=== PATIENT | female | born 1975 | race Caucasian/White ===

== ENCOUNTER 2020-06-16 09:52 | Emergency (ER) | payer SELFPAY ==
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
[2020-06-16] MEDS ORDERED: CYCLOBENZAPRINE 10 MG TAB ONE (11:04)
[2020-06-16] MEDS ORDERED: HYDROCODONE/APAP 10/325 TAB ONE (11:05)
--- NOTE | 2020-06-16 11:46 | EDPHYS ---
Physician Documentation [facility] Name: Gomez Mathew Age: 44 yrs Sex: Female : 1975 Arrival Date: 06/16/2020 Time: 09:54 Bed 28 Private MD: Figueroa Ramirez HPI: 06/16 10:36 This 44 yrs old Female presents to ER via Ambulatory with complaints of Back pm1 Pain. 10:36 The patient presents with pain that is chronic, with no known mechanism of injury. The pm1 symptoms are located in the low back. Onset: The symptoms/episode began/occurred 3 year(s) ago. The pain does not radiate. Associated signs and symptoms: The patient has no apparent associated signs or symptoms, Pertinent negatives: dysuria, fever, incontinence, numbness, tingling, weakness. The problem was sustained from unknown cause. Modifying factors: The patient symptoms are alleviated by nothing, the patient symptoms are aggravated by movement. Severity of symptoms: in the emergency department the symptoms have improved, a " 5" out of "10". The patient has experienced similar episodes in the past, chronically. Patient presents to the ER with complaints of lower back pain that started at least 3 years ago. She will not specify when it started. 3 years ago had a x-ray or u/s that reported a mass at T12 area. Presented to a [place] ER at that time for the same lower back cramping pain. 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 - Social history:: Smoking status: . ROS: 10:36 Constitutional: Negative for fever, chills, and weight loss, Cardiovascular: Negative pm1 for chest pain, palpitations, and edema, Respiratory: Negative for shortness of breath, cough, wheezing, and pleuritic chest pain, Abdomen/GI: Negative for abdominal pain, nausea, vomiting, diarrhea, and constipation. 10:36 : Negative for injury, bleeding, discharge, and swelling, MS/Extremity: Negative for injury and deformity, Skin: Negative for injury, rash, and discoloration, Neuro: Negative for headache, weakness, numbness, tingling, and seizure. 10:36 Back: Positive for of the low back area, cramping. Exam: 10:36 Constitutional: This is a well developed, well nourished patient who is awake, alert, pm1 and in no acute distress. Head/Face: Normocephalic, atraumatic. 10:36 Cardiovascular: Exam negative for acute changes, Rate: normal, Rhythm: regular, Pulses: no pulse deficits are appreciated. 10:36 Respiratory: Exam negative for acute changes, respiratory distress, shortness of breath. 10:36 Back: vertebral tenderness, is not appreciated, muscle spasm, is appreciated in the low back area. 10:36 Skin: Appearance: normal except for affected area, diffuse neurofibromas present. 10:36 Neuro: Exam negative for acute changes, Orientation: is normal, Mentation: is normal, Motor: is normal, moves all fours, Sensation: is normal, no obvious gross deficits, Gait: is steady, at a normal pace, without difficulty. Vital Signs: 10:17 BP 149 / 89; Pulse 87; Resp 16; Temp 98.3; Pulse Ox 100% on R/A; Weight 47.63 kg; iw Height 4 ft. 11 in. (149.86 cm); Pain 6/10; 10:17 Body Mass Index 21.21 (47.63 kg, 149.86 cm) iw MDM: 10:25 Patient medically screened. pm1 10:36 ED course: Patient reports history of mass on back diagnosed 3 years ago in T12 area by pm1 x-ray or U/S. Patient has been having this same back pain for greater than 3 years. Patient currently reports pain to tailbone area with muscle spasms in lower back. I offered imaging, lumbar x-ray, but patient refused. Patient without numbness tingling or radiation of pain to lower extremities. No incontinence of urine or stool. 11:13 Data reviewed: vital signs. Data interpreted: Pulse oximetry: on room air is 100 %. pm1 Interpretation: normal. 11:13 ED course: PMP[place] reviewed. 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 Administered Medications: 10:54 Drug: Flexeril 10 mg Route: PO; iw 10:54 Drug: [place] 10 mg-325 mg 1 tabs Route: PO; iw Disposition: 06/17 08:56 Co-signature as Attending Physician, Figueroa Schulz MD I agree with the assessment and sharon plan of care. Disposition: 06/16/20 11:46 Discharged to Home. Impression: Low back pain. - Condition is Stable. - Discharge Instructions: Back Pain, Adult, Chronic Back Pain. - Prescriptions for Tylenol- Codeine #3 300-30 mg Oral Tablet - take 2 tablets by ORAL route every 6 hours As needed; 20 tablet. Cyclobenzaprine 10 mg Oral Tablet - take 1 tablet by ORAL route every 8 hours As needed; 30 tablet. - Medication Reconciliation Form, Thank You Letter, Antibiotic Education, Prescription Opioid Use form. - Follow up: Emergency Department; When: As needed; Reason: Worsening of condition. Follow up: Private Physician; When: 2 - 3 days; Reason: Recheck today's complaints, Continuance of care, Re-evaluation by your physician. - Problem is new. - Symptoms have improved. Signatures: Figueroa Schulz MD MD cha Williams, Irene, ROSELINE RN iw Mike Bustillos NP SOUND ENGINEERING TECHNICIAN pm1 Corrections: (The following items were deleted from the chart) 06/16 12:00 11:46 06/16/2020 11:46 Discharged to Home. Impression: Low back pain. Condition is iw Stable. Discharge Instructions: Back Pain, Adult, Chronic Back Pain. Prescriptions for Tylenol-Codeine #3 300-30 mg Oral Tablet - take 2 tablets by ORAL route every 6 hours As needed; 20 tablet, Cyclobenzaprine 10 mg Oral Tablet - take 1 tablet by ORAL route every 8 hours As needed; 30 tablet. and Forms are Medication Reconciliation Form, Thank You Letter, Antibiotic Education, Prescription Opioid Use. Follow up: Emergency Department; When: As needed; Reason: Worsening of condition. Follow up: Private Physician; When: 2 - 3 days; Reason: Recheck today's complaints, Continuance of care, Re-evaluation by your physician. Problem is new. Symptoms have improved. pm1
--- NOTE | 2020-06-16 11:46 | ER ---
Nurse's Notes [facility] Name: Gomez Mathew Age: 44 yrs Sex: Female : 1975 Arrival Date: 06/16/2020 Time: 09:54 Bed 28 Private MD: Diagnosis: Low back pain Presentation: 06/16 10:17 Chief complaint: Patient states: has had back spasms X 2 days, worse last night, has iw had spasms before and can usually control the pain at home but it was worse today, was told she has a mass on her vertebra that will eventually need to be removed but now does not have insurance. Coronavirus screen: At this time, the client does not indicate any symptoms associated with coronavirus-19. Ebola Screen: Patient negative for fever greater than or equal to 101.5 degrees Fahrenheit, and additional compatible Ebola Virus Disease symptoms Patient denies exposure to infectious person. Patient denies travel to an Ebola-affected area in the 21 days before illness onset. No symptoms or risks identified at this time. Initial Sepsis Screen: Does the patient meet any 2 criteria? No. Patient's initial sepsis screen is negative. Does the patient have a suspected source of infection? No. Patient's initial sepsis screen is negative. Risk Assessment: Do you want to hurt yourself or someone else? Patient reports no desire to harm self or others. Onset of symptoms was June 14, 2020. 10:17 Method Of Arrival: Ambulatory iw 10:17 Acuity: ELIECER 4 iw Triage Assessment: 11:59 General: Appears in no apparent distress. Behavior is calm, cooperative. iw Musculoskeletal: Range of motion: intact in all extremities. 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 - Social history:: Smoking status: . Screenin:30 Abuse screen: Denies threats or abuse. Denies injuries from another. Nutritional iw screening: No deficits noted. Tuberculosis screening: No symptoms or risk factors identified. Fall Risk None identified. Assessment: 10:18 Reassessment: Patient appears in no apparent distress at this time. General: Appears in iw no apparent distress. Pain: Complains of pain in lumbar area, left low back and right low back. Neuro: Level of Consciousness is awake, alert, obeys commands, Oriented to person, place, time, situation, Moves all extremities. Full function. Cardiovascular: Patient's skin is warm and dry. Respiratory: Respiratory effort is even, unlabored, Respiratory pattern is regular, symmetrical. Derm: Skin is intact, is healthy with good turgor. Musculoskeletal: Range of motion: intact in all extremities. 10:57 Reassessment: Patient appears in no apparent distress at this time. Patient and/or iw family updated on plan of care and expected duration. Pain level reassessed. Patient is alert, oriented x 3, equal unlabored respirations, skin warm/dry/pink. Vital Signs: 10:17 BP 149 / 89; Pulse 87; Resp 16; Temp 98.3; Pulse Ox 100% on R/A; Weight 47.63 kg; iw Height 4 ft. 11 in. (149.86 cm); Pain 6/10; 10:17 Body Mass Index 21.21 (47.63 kg, 149.86 cm) iw ED Course: 09:54 Patient arrived in ED. mr 09:58 Mike Bustillos, STEPHANE is PHCP. pm1 09:58 Figueroa Schulz MD is Attending Physician. pm1 10:18 Patient has correct armband on for positive identification. iw 10:19 Triage completed. iw 10:21 Veronique West, RN is Primary Nurse. iw 10:21 Arm band placed on. iw 10:57 No provider procedures requiring assistance completed. Patient did not have IV access iw during this emergency room visit. Administered Medications: 10:54 Drug: Flexeril 10 mg Route: PO; iw 10:54 Drug: [place] 10 mg-325 mg 1 tabs Route: PO; iw Outcome: 11:46 Discharge ordered by . pm1 11:59 Discharged to home ambulatory. iw 11:59 Condition: good 11:59 Discharge instructions given to patient, Instructed on discharge instructions, follow up and referral plans. medication usage, Demonstrated understanding of instructions, follow-up care, medications, Prescriptions given X 2. 12:00 Patient left the ED. iw Signatures: Renée Murphy Irene, RN RN iw Mike Bustillos, STEPHANE SENIOR OPERATOR pm1
[2020-06-16 12:06] VITALS: BP 149/89; TEMP 98.3; O2SAT 100
== END 2020-06-16 12:00 | disposition home or self-care (01) ==
LOC: ER 09:52
DX: M54.5 Low back pain (principal); I10 Essential (primary) hypertension
CPT/HCPCS: 99283

== ENCOUNTER 2021-10-22 11:04 | Emergency (ER) | payer OTHER ==
--- OUTSIDE RECORDS SUMMARY | 2021-10-22 11:09 | XMS REPORT | Continuity of Care Document ---
:1975 Author Organization [facility] t Address [address] [place] [address] Care Team Providers Name Role Phone FOX JACKMAN Attending Clinician Unavailable JOVANI GREENE Attending Clinician Unavailable KHOA Attending Clinician Unavailable MARLEE Attending Clinician Unavailable NATHAN DAVE Attending Clinician Unavailable Payers Payer Name Policy Type Policy Number Effective Date Expiration Date S ource Problems Condition Condition Condition Status Onset Resolution Last Treating Co mments Source Name Details Category Date Date Treatment Clinician Date Labile Labile Problem Active [facility] hypertensi hypertensi it y of on on [place] Physici ans Neurofibro Neurofibro Problem Active U nivers matosis, matosis, ity of type I type I [place] (von (von Physici Recklingha Recklingha an s usen's usen's disease) disease) Allergies, Adverse Reactions, Alerts Allergy Allergy Status Severity Reaction(s) Onset Inactive Treating Comm ents Source Name Type Date Date Clinician No Known DA Active U 2017-08 [facility] 08-11 [place] Family History Family Member Diagnosis Comments Start Date Stop Date Source Mother Family history of Univers ity of [place] malignant neoplasm of Phy sicians brain Father Family history of [facility] ity of [place] hypertension Physicians Father Family history of type Un iversity of [place] 2 diabetes mellitus Physi cians Social History Smoking Status Start Date Stop Date Source Current every day smoker [facility] [place] [facility] Medications Ordered Filled Start Stop Current Ordering Indication Dosage Frequency Signature Comments Components Source Medication Medication Date Date Medication? Clinician (SIG) Name Name NIFEdipine NIFEdipine 2016- Yes POURAN 1 QD TAKE 1 Univers ER Osmotic ER Osmotic 10-08 KHOA TABLET ity of Release 30 Release 30 00:00: M.D. DAILY. [place] MG Oral MG Oral 00 Physici Tablet Tablet ans Extended Extended Release 24 Release 24 Hour Hour Procedures Procedure Date / Time Performing Clinician Source Performed History of [facility] History of Appendectomy [facility] Physicians Encounters Start End Encounter Admission Attending Care Care Encounter Source Date/Time Date/Time Type Type Clinicians Facility Department ID 2018-12-07 2018-12-[address] [facility] [id number] [id number] [facility] [address] 11:06:53 12:21:[id number] [facility] 2016-10-22 2016-10-22 Appointmen VERA COUCH [facility] [id number] Univers 14:00:00 14:00:00 t; Alexandre CRAIN M.D. [place] POURAN, Physici M.D. ans 2016-10-08 2016-10-08 Appointmen VERA COUCH [facility]TP [id number] Univers 08:30:00 08:30:00 t; Alexandre CRAIN M.D. [place] POURAN, Physici M.D. ans Results Test Description Test Time Test Comments Results Result [facility] e Comments MR, BRAIN, WITH 2019-07-03 FINAL REPORT PATIENT 14:40:00 ID: [id number] MRI Brain with and without contrast Clinical [...] clinical correlation is requested. Signed: Daniela Obrien MDReport Verified Date/Time: 07/03/2019 14:40:52 Reading Location: [facility] C013V Neuro Reading Room - CT HEAD/BRAIN 2019-04-22 Name: JALYN STUBBS W/O CONT 22:15:00 [facility] : 1975 Age/S: 43 / F [id number] Unit #: [id number] Loc: [place] [address] Phys: Shreyas Miranda MD Acct: [id number] Dis Date: Status: REG ER PHONE #: [phone] Exam Date: 04/22/2019 2200 FAX #: Reason: persistent headaches EXAMS: CPT: [id number] CT HEAD/BRAIN W/O CONT [id number] CT head History: persistent headaches Comparison: None [...] and signed by: Michael Lizama M.D. CC: Technologist:Franny Palumbo, RT(R)(CT) CTDI: DLP: Trnscb Date/Time: 04/22/2019 (2214) Cory Orig Print D/T: S: 04/22/2019 (4940) PAGE 1 Signed Report MM, DIGITAL, 2018-12-21 Diagnostic MRN#: [id number], SCREENING, 11:38:00 workup per [id number] - BILATERAL radiologist?->Ye MM, DIGITAL, MAMMO, INCLUDING CAD sReason for SCREENING, BILATERAL Exam:->screening INCLUDING for mammogram CADBILATERAL DIGITAL SCREENING MAMMOGRAM 3D/2D [...] pg/mL 0-100 (test code = 700) TROPONIN [id number] 16:50:00 Test Item Value Reference Range Interpretation [...] acute neurological disease, and persistent tachyarrhythmia.BASIC METABOLIC [id number] 16:43:00 Test Item Value Reference Range Interpretation [...] S NOT APPLICABLE FOR DIALYSIS PATIEN TS. [id number] 16:40:00 Test Item Value Reference Range Interpretation Comments D-DIMER QUANTITATIVE (BEAKER) (test 0.16 mg/L <0.50 code = 671) REGARDING D-DIMER RESULTS: The 98% NPV (Negative Predictive Value) for DVT/PE exclusion is 0.50 mg/LFEU as suggested by the security patrol officer and as approved by the FDA.Final Information (Auto Output)[id number] 16:39:00 Test Item Value Reference Range Interpretation [...] (Auto Output)Final Information (Auto Output)Final Information (Auto Output)[id number] 16:37:00 Test Item Value Reference Range Interpretation Comments MAGNESIUM (BEAKER) (test code = 1.8 mg/dL 1.5-3.0 627) CBC W/PLT COUNT & AUTO [id number] 16:20:00 Test Item Value Reference Range Interpretation [...] (test code = 2801) RAD, CHEST, 2 [id number] 16:00:00Reason for exam:->CHEST PAINFINAL REPORT Chest, two views History: chest pain Comparison: none Findings:Clear lungs. Normal size heart. No pleural effusion or pneumothorax. Impression:No acute findings in the chest Signed: Lanre Martinez Verified Date/Time: 11/19/2018 16:00:58 Reading Location: [facility] C013Y CT Body Reading Room 04:00 PMPREGNANCY SCREEN, [id number] 22:41:00 Test Item Value Reference Range Interpretation Comments TEST URINE (CASSANDRA) (test Negative code = 583) RAD, HAND, 3 VIEWS, [id number] 21:31:00Reason for exam:->FALLReason for exam:->BACK PAINReason for [...] MDReport Verified Date/Time: 07/20/2017 21:31:41 Reading Location: [facility] C013Y CT Body Reading Room Electronically s igned by: NADJA LIMA on 07/20/2017 09:31 PMRAD, [id number] 21:25:00Reason for exam:->FALLReason for exam:->BACK PAINReason for [...] MDReport Verified Date/Time: 07/20/2017 21:25:18 Reading Location: [address] Body Reading Room , SPINE, LUMBAR, 2 OR 3 [id number] 21:25:00Reason for exam:- >FALLReason for exam:->BACK PAINReason [...] MDReport Verified Date/Time: 07/20/2017 21:25:18 Reading Location: [facility] Body Reading Room URINALYSIS W/ REFLEX URINE [id number] 00:46:00 Test Item Value Reference Range Interpretation [...] 1663) SOURCE(BEAKER) (test code = 2795) SCREEN, [id number] 00:41:00 Test Item Value Reference Range Interpretation Comments TEST URINE (BEAKER) (test Negative code = 583) URINALYSIS W/ [id number] 04:08:00 Test Item Value Reference Range Interpretation [...] 1663) SOURCE(BEAKER) (test code = 2795) SCREEN, [id number] 03:58:00 Test Item Value Reference Range Interpretation Comments TEST URINE (BEAKER) (test Negative code = 583) CBC W/PLT COUNT & AUTO [id number] 03:21:00 Test Item Value Reference Range Interpretation [...] code = 1+ few 965) BASIC METABOLIC [id number] 03:19:00 Test Item Value Reference Range Interpretation [...]
[2021-10-22] MEDS ORDERED: DIAZEPAM 5 MG TABLET ONE (11:24)
[2021-10-22] MEDS ORDERED: HYDROCODONE/APAP 5/325 MG TAB ONE (11:25)
--- NOTE | 2021-10-22 12:54 | EDPHYS ---
Physician Documentation [facility] Name: Gomez Mathew Age: 46 yrs Sex: Female : 1975 Arrival Date: 10/22/2021 Time: 11:08 Bed 14 Private MD: ED Physician Torito Deleon HPI: 10/22 11:20 This 46 yrs old Female presents to ER via Ambulatory with complaints of Back Pain. ms3 11:20 The patient presents with pain that is acute, with no known mechanism of injury. The ms3 patient presents with pain that is chronic. The symptoms are located in the low back. Onset: The symptoms/episode began/occurred last night. The pain does not radiate. Associated signs and symptoms: Pertinent negatives: abdominal pain, fever, nausea, numbness, tingling, urinary retention, vomiting, weakness. The problem was sustained from a chronic condition. Modifying factors: The patient symptoms are alleviated by nothing, the patient symptoms are aggravated by nothing. 46-year-old female with past medical history of neurofibromatosis and hypertension presents for back spasm that began last night. Patient states pain is 10/10 and feels like spasms. Patient states this occurs a few times per month. Patient denies alleviating or inciting factors. Patient denies numbness, weakness, bowel or bladder incontinence, or saddle anesthesia. 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 - Social history:: Smoking status: unknown. ROS: 11:20 Constitutional: Negative for fever, and chills. Eyes: Negative for injury, pain, ms3 redness, and discharge, ENT: Negative for injury, pain, and discharge, Neck: Negative for injury, pain, and swelling, Cardiovascular: Negative for chest pain, and palpitations. Respiratory: Negative for shortness of breath, cough, wheezing, and pleuritic chest pain, Abdomen/GI: Negative for abdominal pain, nausea, vomiting, diarrhea, and constipation, MS/Extremity: Negative for injury and deformity, Skin: Negative for injury, rash, and discoloration, Neuro: Negative for headache, weakness, numbness, tingling. Psych: Negative for depression, anxiety, suicide ideation, homicidal ideation, and hallucinations. 11:20 Back: Positive for pain at rest, pain with movement, of the lumbar area. 11:20 All other systems are negative. Exam: 11:20 Constitutional: This is a well developed, well nourished patient who is awake, alert, ms3 and in no acute distress. Head/Face: Normocephalic, atraumatic. Eyes: Pupils equal round and reactive to light, extra-ocular motions intact. Lids and lashes normal. Conjunctiva and sclera are non-icteric and not injected. Periorbital areas with no swelling, redness, or edema. ENT: Nares patent. No nasal discharge, no septal abnormalities noted. Tympanic membranes are normal and external auditory canals are clear. Oropharynx with no redness, swelling, or masses, exudates, or evidence of obstruction, uvula midline. Mucous membranes moist. Neck: Trachea midline, no cervical lymphadenopathy. Supple, full range of motion without nuchal rigidity, or vertebral point tenderness. No Meningismus. Chest/axilla: Normal chest wall appearance and motion. Nontender with no deformity. Cardiovascular: Regular rate and rhythm with a normal S1 and S2. No gallops, murmurs, or rubs. Normal PMI, no JVD. No pulse deficits. Respiratory: Lungs have equal breath sounds bilaterally, clear to auscultation and percussion. No rales, rhonchi or wheezes noted. No increased work of breathing, no retractions or nasal flaring. Abdomen/GI: Soft, non-tender, with normal bowel sounds. No distension or tympany. No guarding or rebound. No evidence of tenderness throughout. Neuro: Awake and alert, GCS 15, oriented to person, place, time, and situation. Cranial nerves II-XII grossly intact. Motor strength 5/5 in all extremities. Sensory grossly intact. Cerebellar exam normal. Normal gait. Psych: Awake, alert, with orientation to person, place and time. Behavior, mood, and affect are within normal limits. 11:20 Back: pain, that is moderate, of the lumbar area, ROM is normal, normal spinal alignment noted, CVA tenderness, is absent, vertebral tenderness, is not appreciated, muscle spasm, is appreciated in the lumbar area. Vital Signs: 11:16 BP 172 / 123; Pulse 97; Resp 18; Temp 98.2; Pulse Ox 97% ; Weight 47.63 kg; Height 4 ag7 ft. 11 in. (149.86 cm); Pain 10/10; 12:31 BP 133 / 82; Pulse 90; Resp 18; Pulse Ox 98% on R/A; Pain 0/10; lr4 13:21 BP 122 / 71; Pulse 84; Resp 18; Pulse Ox 99% on R/A; lr4 11:16 Body Mass Index 21.21 (47.63 kg, 149.86 cm) ag7 MDM: 11:20 Patient medically screened. ms3 12:53 Differential diagnosis: Back pain vs muscle spasm vs DDD. Data reviewed: vital signs, ms3 nurses notes. ED course: Discussed physical exam findings with patient and her . Patient to follow-up with her primary care physician as discussed. All questions were answered. Return precautions discussed include worsening symptoms, or any other concerns. On reevaluation patient symptoms have improved, patient is in no apparent distress, patient ambulatory in emergency department, no weakness, no numbness, no episodes of bowel or bladder incontinence.. Administered Medications: 11:29 Drug: HYDROcodone-acetaminophen 5 mg-325 mg 1 tabs Route: PO; ph 13:22 Follow up: Response: No adverse reaction; Pain is decreased lr4 11:29 Drug: Valium (diazepam) 10 mg Route: PO; ph 13:22 Follow up: Response: No adverse reaction; Pain is decreased lr4 Disposition Summary: 10/22/21 12:53 Discharge Ordered Location: Home ms3 Problem: new ms3 Condition: Stable ms3 Diagnosis - Low back pain ms3 - neurofibromatosis ms3 - Muscle spasm of back ms3 Followup: ms3 - With: Private Physician - When: 2 - 3 days - Reason: Discharge Instructions: - Discharge Summary Sheet ms3 - Acute Back Pain, Adult ms3 Forms: - Medication Reconciliation Form ms3 - Thank You Letter ms3 - Antibiotic Education ms3 - Prescription Opioid Use ms3 Prescriptions: - Ibuprofen 600 mg Oral Tablet - take 1 tablet by ORAL route every 6 hours As needed take with food; 30 tablet; ms3 Refills: 0, Product Selection Permitted - Cyclobenzaprine 10 mg Oral Tablet - take 1 tablet by ORAL route every 8 hours As needed; 30 tablet; Refills: 0, ms3 Product Selection Permitted Signatures: Andreia Ruvalcaba RN RN Torito eDleon DO DO ms3 Adenike Dwyer RN RN lr4 Christen Pedersen RN RN ag7
--- NOTE | 2021-10-22 12:54 | ER ---
Nurse's Notes [facility] Name: Gomez Mathew Age: 46 yrs Sex: Female : 1975 Arrival Date: 10/22/2021 Time: 11:08 Bed 14 Private MD: Diagnosis: Low back pain;neurofibromatosis;Muscle spasm of back Presentation: 10/22 11:16 Chief complaint: Patient states: " Patient c/o back pain, back spasm that shoots up the ag7 spine and feels like crushing the chest that started last night". Coronavirus screen: Client denies travel out of the [place] in the last 14 days. At this time, the client does not indicate any symptoms associated with coronavirus-19. Ebola Screen: No symptoms or risks identified at this time. Initial Sepsis Screen: Does the patient meet any 2 criteria? No. Patient's initial sepsis screen is negative. Does the patient have a suspected source of infection? No. Patient's initial sepsis screen is negative. Risk Assessment: Do you want to hurt yourself or someone else? Patient reports no desire to harm self or others. Onset of symptoms was October 21, 2021. 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 - Social history:: Smoking status: unknown. Screenin:56 Abuse screen: Denies threats or abuse. Denies injuries from another. Nutritional ph screening: No deficits noted. Tuberculosis screening: No symptoms or risk factors identified. Fall Risk None identified. Assessment: 11:49 General: Appears in no apparent distress. uncomfortable, slender, well groomed, ph Behavior is calm, cooperative, appropriate for age, Denies fever, feeling ill. Pain: Complains of pain in lumbar area Pain radiates to left subscapular area, right subscapular area, left mid back and right mid back Pain currently is 10 out of 10 on a pain scale. Neuro: Level of Consciousness is awake, alert, obeys commands, Oriented to person, place, time, situation. Cardiovascular: Capillary refill < 3 seconds in bilateral fingers Patient's skin is warm and dry. Respiratory: Airway is patent Respiratory effort is even, unlabored. Derm: Skin is intact, is healthy with good turgor, Skin is pink, warm \\T\\ dry. Musculoskeletal: Circulation, motion, and sensation intact. Range of motion: intact in all extremities. 12:33 Reassessment: Patient is alert, oriented x 3, equal unlabored respirations, skin lr4 warm/dry/pink. Patient states feeling better. Patient states symptoms have improved. Vital Signs: 11:16 BP 172 / 123; Pulse 97; Resp 18; Temp 98.2; Pulse Ox 97% ; Weight 47.63 kg; Height 4 ag7 ft. 11 in. (149.86 cm); Pain 10/10; 12:31 BP 133 / 82; Pulse 90; Resp 18; Pulse Ox 98% on R/A; Pain 0/10; lr4 13:21 BP 122 / 71; Pulse 84; Resp 18; Pulse Ox 99% on R/A; lr4 11:16 Body Mass Index 21.21 (47.63 kg, 149.86 cm) ag7 ED Course: 11:08 Patient arrived in ED. mr 11:08 Andreia Ruvalcaba, ROSELINE is Primary Nurse. ph 11:10 Torito Deleon DO is Attending Physician. ms3 11:19 Triage completed. ag7 11:22 Arm band placed on left wrist. ag7 11:56 Patient has correct armband on for positive identification. Bed in low position. Call ph light in reach. Side rails up X 1. Pulse ox on. NIBP on. Door closed. Noise minimized. Warm blanket given. 12:17 No provider procedures requiring assistance completed. lr4 13:21 Patient did not have IV access during this emergency room visit. lr4 Administered Medications: 11:29 Drug: HYDROcodone-acetaminophen 5 mg-325 mg 1 tabs Route: PO; ph 13:22 Follow up: Response: No adverse reaction; Pain is decreased lr4 11:29 Drug: Valium (diazepam) 10 mg Route: PO; ph 13:22 Follow up: Response: No adverse reaction; Pain is decreased lr4 Outcome: 12:19 Condition: stable lr4 12:53 Discharge ordered by MD. ms3 13:21 Discharged to home ambulatory. lr4 13:21 Discharge instructions given to patient. 13:22 Patient left the ED. lr4 Signatures: Renée Murphy Patricia RN RN ph Torito Deleon DO DO ms3 Adenike Dwyer, RN RN lr4 Christen Pedersen RN RN ag7
[2021-10-22 13:27] VITALS: TEMP 98.2
[2021-10-22 13:30] VITALS: BP 122/71; O2SAT 99
== END 2021-10-22 13:22 | disposition home or self-care (01) ==
LOC: ER 11:04
DX: M54.50 Low back pain, unspecified (principal); Q85.00 Neurofibromatosis, unspecified; M62.830 Muscle spasm of back
CPT/HCPCS: 99283

== ENCOUNTER 2022-06-18 08:30 | Emergency (ER) | payer OTHER ==
--- OUTSIDE RECORDS SUMMARY | 2022-06-18 08:33 | XMS REPORT | Continuity of Care Document ---
:1975 Author Organization [facility] t Address [address] [place] [address] Care Team Providers Name Role Phone Roly WINSTON MD, Hawkins Primary Care Physician SURINDER JACKMAN Attending Clinician Unavailable LV GREENE Attending Clinician Unavailable BREANN COUCH M.D. Attending Clinician Unavailable PETER WHALEN Attending Clinician Unavailable JOSEPH DAVE Attending Clinician Unavailable Payers Payer Name Policy Type Policy Number Effective Date Expiration Date S ource Problems Condition Condition Condition Status Onset Resolution Last Treating Co mments Source Name Details Category Date Date Treatment Clinician Date Domestic Domestic Disease [facility], [facility] Medi leticia initial initial 00 Center encounter encounter Essential Essential Disease Active [facility] - [facility]: Medical [facility] Center Neurofibro Neurofibro Disease Active 2018- [facility] Labile Labile Problem [facility] ans Neurofibro Neurofibro Problem Active [facility] T matosis, matosis, Physic i type I type I ans (von (von Recklingha Recklingha usen's usen's disease) disease) Allergies, Adverse Reactions, Alerts Allergy Allergy Status Severity Reaction(s) Onset Inactive Treating Comm ents Source Name Type Date Date Clinician No Known DA Active [facility] 2017-08 [facility]ie 08[facility]11 [facility] Family History Family Member Diagnosis Comments Start Date Stop Date Source Mother Family history of [facility] malignant neoplasm of brain Natural father Diabetes [facility] Natural father [facility] Father Family history of [facility] hypertension Father Family history of [facility] type 2 diabetes mellitus Social History Social Habit Start Date Stop Date Quantity Comments Source Alcohol intake 2019-07-02 2019-07-[address] [facility] 00:00:00 00:00:00 non-drinker of Medical Ce nter alcohol (finding) Tobacco Comment 2019-06-30 2019-06-30 [address] [facility] 00:[facility] day[facility] Sex Assigned At [address] [facility] 00:00:00 00:00:00 [facility] Center Smoking Status Start Date Stop Date Source Current every day smoker [facility] Medications Ordered Filled Start Stop Current Ordering Indication Dosage Frequency Signature Comments Components Source Medication Medication Date Date Medication? Clinician (SIG) Name Name amitriptyli 2018-08 Yes Takes [facility] (ELAVIL) 1-14 2-tabs by [facility]ila es 25 MG 00:00: mouth Medical tablet 00 daily. [place] SUMAtriptan 2018-[address] (IMITREX) 1-14 [facility] 50 MG 00:00: Medical tablet 00 Center NIFEdipine NIFEdipine Yes POURAN 1 QD TAKE 1 [facility] ER Osmotic ER Osmotic 3-02 KHOA TABLET Physici Release 30 Release 30 00:00: M.D. DAILY. ans MG Oral MG Oral 00 Tablet Tablet Extended Extended Release 24 Release 24 Hour Hour Immunizations Ordered Immunization Filled Immunization Date Status Commen ts Source Name Name Influenza TIV (IM) 2019-06-[address] [facility] Procedures Procedure Date / Time Performed Performing Clinician Sourc e History of Section [facility] Classical History of Appendectomy [facility] Plan of Care Planned Activity Planned Date Details Comments Source Future Scheduled 2025-05-22 DTAP/TDAP/TD VACCINES [facility] Test 00:00:00 (2 - Td or Tdap) [code Medic al Center = DTAP/TDAP/TD VACCINES (2 - Td or Tdap)] Future Scheduled 2022-04-09 INFLUENZA VACCINE (#1) [facility] Test 00:00:00 [code = INFLUENZA Medical Ce nter VACCINE (#1)] Future Scheduled 2021-12-[address] [facility] Test 00:00:00 (procedure) [code = Medical Center [id number]] Future Scheduled 2021-08-[address] [facility] Test 00:00:00 (12+) [code = Medical Center DEPRESSION SCREENING (12+)] Future Scheduled [address] [facility] Test 00:00:00 malignant neoplasm of Medica l Center cervix (procedure) [code = 825869167] Future Scheduled 1995 HEPATITIS C SCREENING [facility] Test 00:00:00 [code = HEPATITIS C Medical Center SCREENING] Future Scheduled [address] [facility] Test 00:00:00 0-64 YRS (1 - PCV) Medical C enter [code = PNEUMOCOCCAL VACCINE 0-64 YRS (1 - PCV)] Future Scheduled 1978-02-21 COVID-19 VACCINE (#1) [facility] Test 00:00:00 [code = COVID-[address] VACCINE (#1)] Encounters Start End Encounter Admission Attending Care Care Encounter Source Date/Time Date/Time Type Type Clinicians Facility Department ID 2018-12-07 2018-12-07 Outpatient [facility] [id number] [id number] 11:06:53 12:21:18 [id number] [facility] 2016-10-22 2016-10-22 VERA Willams UTP [id number] [place] 14:00:00 14:00:00 t; Jimmy CRAIN i, M.D. ans POURAN, M.D. 2016-10-08 2016-10-08 AppointVERA Vincent UTP [id number] [place] 08:30:00 08:30:00 t; Jimmy CRAIN i, M.D. ans POURAN, M.D. Results Test Description Test Time Test Comments Results Result [facility] e Comments MR, BRAIN, WITH 2019-07-03 FINAL REPORT PATIENT 14:40:00 ID: [id number] MRI Brain with and without contrast Clinical [...] MDReport Verified Date/Time: 07/03/2019 14:40:52 Reading Location: [address] Neuro Reading Room - CT HEAD/BRAIN 2019-04-22 Name: JALYN STUBBS W/O CONT 22:15:00 [facility] : 1975 Age/S: 43 / F [address] Unit #: [id number] Loc: [place] [address] Phys: Shreyas Miranda MD Acct: [id number] Dis Date: Status: REG ER PHONE #: [phone] Exam Date: 04/22/2019 2200 FAX #: Reason: persistent headaches EXAMS: CPT: [id number] CT HEAD/BRAIN W/O CONT 70412 CT head History: persistent headaches Comparison: None [...] signed by: Michael Lizama M.D. CC: Technologist:Franny Palumbo RT(R)(CT) CTDI: DLP: Trnscb Date/Time: 04/22/2019 (2214) [email or web address] Orig Print D/T: S: 04/22/2019 (5312) PAGE 1 Signed Report MM, DIGITAL, 2018-12-21 Diagnostic MRN#: MAMMO, SCREENING, 11:38:00 workup per [id number] - BILATERAL radiologist?->Ye MM, DIGITAL, MAMMO, INCLUDING [...] pg/mL 0-100 (test code = 700) TROPONIN [id number] 16:50:00 Test Item Value Reference Range Interpretation [...] acute neurological disease, and persistent tachyarrhythmia.BASIC METABOLIC [id number] 16:43:00 Test Item Value Reference Range Interpretation [...] S NOT APPLICABLE FOR DIALYSIS PATIEN TS. [id number] 16:40:00 Test Item Value Reference Range Interpretation Comments D-DIMER QUANTITATIVE (BEAKER) (test 0.16 mg/L <0.50 code = 671) REGARDING D-DIMER RESULTS: The 98% NPV (Negative Predictive Value) for DVT/PE exclusion is 0.50 mg/LFEU as suggested by the wood finisher and as approved by the FDA.Final Information (Auto Output)[id number] 16:39:00 Test Item Value Reference Range Interpretation Comments PROTIME (BEAKER) (test code = 759) 10.3 sec 9.3-12.0 INR (BEAKER) (test code = 370) 0.9 <=5.9 PARTIAL THROMBOPLASTIN TIME (BEAKER) 28.2 sec 23.0-35.0 (test code = 760) RECOMMENDED COUMADIN/WARFARIN INR THERAPY RANGESSTANDARD DOSE: 2.0 - 3.0 Includes: PROPHYLAXIS for venous thrombosis, systemic embolization; TREATMENT for venous thrombosis and/or pulmonary embolus.HIGH RISK: Target INR is 2.5-3.5 for patients with mechanical heart valves.Final Information (Auto Output)Final Information (Auto Output)Final Information (Auto Output)[id number] 16:37:00 Test Item Value Reference Range Interpretation Comments MAGNESIUM (BEAKER) (test code = 1.8 mg/dL 1.5-3.0 627) CBC W/PLT COUNT & AUTO [id number] 16:20:00 Test Item Value Reference Range Interpretation [...] (test code = 2801) RAD, CHEST, 2 [id number] 16:00:00Reason for exam:->CHEST PAINFINAL REPORT Chest, two views History: chest pain Comparison: none Findings:Clear lungs. Normal size heart. No pleural effusion or pneumothorax. Impression:[facility] Signed: Lanre Martinez MDReport Verified Date/Time: 11/19/2018 16:00:58 Reading Location: [facility] C013Y CT Body Reading Room PREGNANCY SCREEN, [id number] 22:41:00 Test Item Value Reference Range Interpretation Comments TEST URINE (BEAKER) (test Negative code = 583) RAD, HAND, 3 VIEWS, [id number] 21:31:00Reason for exam:->FALLReason for exam:->BACK PAINReason for [...] MDReport Verified Date/Time: 07/20/2017 21:31:41 Reading Location: [facility] C[facility] Body Reading Room RAD, [id number] 21:25:00Reason for exam:->FALLReason for exam:->BACK PAINReason for exam:- >HAND PAINFINAL REPORT RAD, SPINE, LUMBAR, 2 OR 3 VIEWS, RAD, SACRUM \T\ COCCYX, MIN 3 VIEWS CLINICAL INDICATION: FALLBACK PAINHAND PAIN COMPARISON: None FINDINGS: Frontal, lateral and conedlateral views of the lumbar spine. Frontal, inlet and lateral views of the sacrococcygeal region.. No fracture or loss of vertebral height is identified. The disc spaces are preserved. The lumbar spinealignment is normal. Psoas shadows are in place. Sacral bones are intact. Coccygeal elements are intact with preserved alignment. IMPRESSION: No acute abnormality of the lumbar spine or sacrococcygeal region. Signed: JR Lima Robert MDReport Verified Date/Time: 07/20/2017 21:25:18 Reading Location: [facility] C013Y CT Body Reading Room RAD, SPINE, LUMBAR, 2 OR 3 [id number] 21:25:00Reason for exam:->FALLReason for exam:->BACK PAINReason for exam:->HAND PAINFINAL REPORT RAD, SPINE, LUMBAR, 2 OR 3 VIEWS, RAD, SACRUM \T\ COCCYX, MIN 3 VIEWS CLINICAL INDICATION: FALLBACK PAINHAND PAIN COMPARISON: None FINDINGS: Frontal, lateral and coned lateral views of the lumbar spine. Frontal, inlet and lateral views of the sacrococcygeal region.. No fracture or loss of vertebral height is identified. The disc spaces are preserved. The lumbar spinealignment is normal. Psoas shadows are in place. Sacral bones are intact. Coccygeal elements are intact with preserved alignment. IMPRESSION: No acute abnormality of the lumbar spine or sacrococcygeal region. Signed: JR Lima Robert MDReport Verified Date/Time: 07/20/2017 21:25:18 Reading Location: [facility] C013Y CT Body Reading Room ALYSIS W/ REFLEX URINE [id number] 00:46:00 Test Item Value Reference Range Interpretation [...] 1663) SOURCE(BEAKER) (test code = 2795) SCREEN, [id number] 00:41:00 Test Item Value Reference Range Interpretation Comments TEST URINE (BEAKER) (test Negative code = 583) URINALYSIS W/ [id number] 04:08:00 Test Item Value Reference Range Interpretation [...] 1663) SOURCE(BEAKER) (test code = 2795) SCREEN, [id number] 03:58:00 Test Item Value Reference Range Interpretation Comments TEST URINE (BEAKER) (test Negative code = 583) CBC W/PLT COUNT & AUTO [id number] 03:21:00 Test Item Value Reference Range Interpretation [...] code = 1+ few 965) BASIC METABOLIC [id number] 03:19:00 Test Item Value Reference Range Interpretation [...]
--- NOTE | 2022-06-18 09:49 | RAD REPORT ---
EXAM DESCRIPTION: RAD - Lumbar Spine 3 Views - 06/18/2022 9:30 am CLINICAL HISTORY: Back pain FINDINGS: No fracture or dislocation is seen. Nodular opacities throughout the superficial tissues likely related to neurofibromatosis
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
[2022-06-18 11:24] VITALS: BP 150/90; TEMP 98; O2SAT 99
== END 2022-06-18 10:30 | disposition home or self-care (01) ==
LOC: ER 08:30
DX: S39.012A Strain of muscle, fascia and tendon of lower back, initial encounter (principal); V43.52XA Car driver injured in collision with other type car in traffic accident, initial encounter; Y93.89 Activity, other specified; Y92.410 Unspecified street and highway as the place of occurrence of the external cause
CPT/HCPCS: 72100; 99283